=== PATIENT | female | born 1965 | race Two or more races ===

== ENCOUNTER 2020-08-14 09:41 | Outpatient (CLI) | payer BC, OTHER ==
[2020-08-14 11:00] LABS: BASOPHILS # (AUTO) 0.1 K/uL (0.0-8.0); BASOPHILS % (AUTO) 0.9 % (0.0-2.0); EOSINOPHILS # (AUTO) 0.1 K/uL (0.0-0.7); EOSINOPHILS % (AUTO) 1.3 % (0.0-7.0); HEMATOCRIT 42.8 % (31.2-41.9); HEMOGLOBIN 14.6 g/dL (10.9-14.3); LYMPHOCYTES # (AUTO) 3.7 K/uL (20.0-40.0); LYMPHOCYTES % (AUTO) 41.2 % (20.5-51.5); MEAN CORPUSCULAR HEMOGLOBIN 29.3 uug (24.7-32.8); MEAN CORPUSCULAR HGB CONC 34 g/dL (32.3-35.6); MEAN CORPUSCULAR VOLUME 85.7 fL (75.5-95.3); MONOCYTES # (AUTO) 0.4 K/uL (2.0-10.0); MONOCYTES % (AUTO) 4.4 % (0.0-11.0); NEUTROPHILS # (AUTO) 4.7 K/uL (1.8-8.9); NEUTROPHILS % (AUTO) 52.2 % (38.5-71.5); PLATELET COUNT (AUTO) 287 K/uL (179-408); RED BLOOD CELL COUNT(AUTO) 4.99 MIL/uL (3.63-4.92); WHITE BLOOD COUNT (AUTO) 8.9 K/uL (3.8-11.8)
[2020-08-14 11:09] LABS: *BILIRUBIN,URIN NEGATIVE (NEGATIVE); *BLOOD, URINE 2+ (NEGATIVE); *CLARITY,URINE SLIGHTLY CLOUDY (CLEAR); *COLOR,URINE YELLOW (YELLOW); *KETONES,URINE NEGATIVE (NEGATIVE); *UROBILINOGEN,URINE 0.2 E.U./dl (NORMAL); LEUKOCYTE ESTERASE ,URINE NEGATIVE (NEGATIVE); NITRITE, URINE NEGATIVE (NEGATIVE); PH,URINE 5.5 (5.0-8.0); UGLUCOSE NEGATIVE (NEGATIVE)
[2020-08-14 11:21] LABS: THYROID STIMULATING HORMONE 1.996 mIU/mL (0.358-3.740)
[2020-08-14 12:03] LABS: BILIRUBIN,TOTAL 0.8 mg/dL (0.2-1.0); CREATININE 0.8 mg/dL (0.6-1.3); POTASSIUM 3.9 mmol/L (3.5-5.1); TOTAL PROTEIN, SERUM 7.8 g/dL (6.4-8.2); URIC ACID 4.8 mg/dL (2.6-6.0)
[2020-08-14 16:57] LABS: URIC ACID CRYSTALS,URINE MANY /HPF (NONE SEEN)
[2020-08-14 16:58] LABS: BACTERIA,URINE MANY /HPF (NONE SEEN); RBC,URINE 0-3 /HPF (0-3); SQUAMOUS EPITHELIAL CELL,UR FEW /HPF (NONE SEEN); WBC,URINE 0-3 /HPF (0-3)
[2020-08-15 08:06] LABS: HEPATITIS B SURFACE AB Reactive (.)
== END 2020-08-14 23:59 | disposition home or self-care (01) ==
LOC: LAB 09:41
PROVIDERS: ATTEND Internal Medicine
DX: E78.5 Hyperlipidemia, unspecified (principal)
CPT/HCPCS: 70030-TC; 82306; 84443; 84480; 84550; 85025; 86706; 86803; 87086

== ENCOUNTER 2020-08-21 11:44 | Outpatient (CLI) | payer BC, OTHER | END 2020-08-21 23:59 | disposition home or self-care (01) | LOC: RAD 11:44 | PROVIDERS: ATTEND Internal Medicine | DX: S62.654A Nondisplaced fracture of middle phalanx of right ring finger, initial encounter for closed fracture (principal); M19.041 Primary osteoarthritis, right hand; M17.12 Unilateral primary osteoarthritis, left knee; M25.462 Effusion, left knee; X58.XXXA Exposure to other specified factors, initial encounter; Y93.89 Activity, other specified; Y92.89 Other specified places as the place of occurrence of the external cause; Y99.8 Other external cause status | CPT/HCPCS: 73130 ==

== ENCOUNTER 2020-09-04 15:17 | Emergency (ER) | payer BC, OTHER ==
[~2020-09-04] VITALS: Ht 154.9 cm; Wt 77.1 kg
--- NOTE | 2020-09-04 16:00 | NUR ---
pt had to leave before d/c. pt gave the number to be called for result.
--- NOTE | 2020-09-04 16:26 | NUR ---
called pt at [phone], left a message that the covid is positive, that she be following strict social isolation for 2 weeks. aware.
== END 2020-09-04 16:00 | disposition home or self-care (01) ==
LOC: ER 15:17
DX: U07.1 COVID-19 (principal)
CPT/HCPCS: A4663

== ENCOUNTER 2021-11-21 10:53 | Outpatient (CLI) | payer BC, OTHER | END 2021-11-21 23:59 | disposition home or self-care (01) | LOC: RAD 10:53 | PROVIDERS: ATTEND Internal Medicine | DX: M19.012 Primary osteoarthritis, left shoulder (principal); M17.12 Unilateral primary osteoarthritis, left knee | CPT/HCPCS: 73030; 73562 ==

== ENCOUNTER 2021-12-30 10:13 | Outpatient (CLI) | payer BC, OTHER | END 2021-12-30 23:59 | disposition home or self-care (01) | LOC: LAB 10:13 | PROVIDERS: ATTEND Obstetrics & Gynecology | DX: Z80.3 Family history of malignant neoplasm of breast (principal) | CPT/HCPCS: 36415 ==

== ENCOUNTER 2022-03-30 04:50 | Emergency (ER) | payer BC, OTHER ==
[~2022-03-30] VITALS: Ht 154.9 cm; Wt 100.2 kg
[2022-03-30] MEDS ORDERED: HYDROMORPHONE 1 MG/1 ML DISP.SYRIN IV ONE (05:15)
[2022-03-30] MEDS ORDERED: IV NORMAL SALINE 1000 ML BAG IV ONE (05:15)
[2022-03-30] MEDS ORDERED: ONDANSETRON 4 MG/2 ML VIAL IV ONE (05:15)
--- NOTE | 2022-03-30 05:20 | NUR ---
PT IN ED ACCOMPANIED BY SPOUSE FOR REPORT OF ABD PAIN.ONSET X 2 DAYS. DENIES EMESIS. CHANDLER 8/10, [place]ARP IN QUALITY. MAP INSERTED LEFT HAND AND LEFT FA. SEEN BY DR. HARRIS AND NEW ORDERS NOTED.
[2022-03-30] MEDS ORDERED: ONDANSETRON 4 MG/2 ML VIAL ONE (05:31)
[2022-03-30] MEDS ORDERED: HYDROMORPHONE 1 MG/1 ML DISP.SYRIN ONE (05:32)
[2022-03-30 05:42] LABS: HEMATOCRIT 39.5 % (31.2-41.9); MEAN CORPUSCULAR HEMOGLOBIN 28.8 uug (24.7-32.8); MEAN CORPUSCULAR VOLUME 86.8 fL (75.5-95.3); PLATELET COUNT (AUTO) 261 K/uL (179-408)
[2022-03-30 05:45] LABS: CREATININE 0.8 mg/dL (0.6-1.3); POTASSIUM 3.9 mmol/L (3.5-5.1)
[2022-03-30 05:51] LABS: BILIRUBIN,DIRECT 0.1 mg/dL (0.0-0.2); BILIRUBIN,TOTAL 0.9 mg/dL (0.2-1.0); TOTAL PROTEIN, SERUM 7.7 g/dL (6.4-8.2)
[2022-03-30] MEDS ORDERED: METRONIDAZOLE 500 MG/NS 100 ML PIGGYBACK IV ONE (06:00)
[2022-03-30] MEDS ORDERED: levoFLOXacin 500 MG/D5W 100ML PIGGYBACK IV ONE (06:00)
[2022-03-30] MEDS ORDERED: levoFLOXacin 500 MG/D5W 100 ML ONE (06:03)
[2022-03-30] MEDS ORDERED: METRONIDAZOLE 500 MG/NS 100ML 100 ML IV ONE (06:04)
[2022-03-30] MEDS ORDERED: IV NORMAL SALINE 250 ML IV ONE (06:27)
[2022-03-30] MEDS ORDERED: SWABABLE VALVE TRANSFER SET EA MC ONE (06:27)
[2022-03-30] MEDS ORDERED: IOHEXOL 350 100 ML INFUS..BTL ONE (06:27)
--- NOTE | 2022-03-30 06:45 | NUR ---
OFF TO CT FOR ABD CT. US OF ABD COMPLETED AND RESULTS INDICATED GALL STONES.MD JENSEN.
--- NOTE | 2022-03-30 07:00 | NUR ---
Night RN did not fill out reassessment on meds.
--- NOTE | 2022-03-30 07:04 | NUR ---
Pt returned from ct scan @ 07. Gave report to incoming GAY [place].
[2022-03-30 07:08] LABS: *BILIRUBIN,URIN NEGATIVE (NEGATIVE); *BLOOD, URINE 2+ (NEGATIVE); *CLARITY,URINE SLIGHTLY CLOUDY (CLEAR); *COLOR,URINE LIGHT YELLOW (YELLOW); *KETONES,URINE 1+ (NEGATIVE); *UROBILINOGEN,URINE 0.2 E.U./dl (NORMAL); LEUKOCYTE ESTERASE ,URINE NEGATIVE (NEGATIVE); NITRITE, URINE NEGATIVE (NEGATIVE); PH,URINE 5.5 (5.0-8.0); UGLUCOSE NEGATIVE (NEGATIVE)
[2022-03-30 07:20] LABS: WBC,URINE NONE SEEN /HPF (0-3)
[2022-03-30 07:21] LABS: BACTERIA,URINE MANY /HPF (NONE SEEN); SQUAMOUS EPITHELIAL CELL,UR FEW /HPF (NONE SEEN)
[2022-03-30] MEDS ORDERED: AMOX-430 PO (07:41)
[2022-03-30] MEDS ORDERED: TRAM50TA2 PO ×2 (07:41→08:02)
[2022-03-30] MEDS ORDERED: IBUP-1955 PO ×2 (07:41→08:02)
[2022-03-30] MEDS ORDERED: METR500T PO (08:02)
[2022-03-30] MEDS ORDERED: LEVO500T90 PO (08:02)
--- NOTE | 2022-03-30 08:11 | NUR ---
Removed IV intact, site okay, bandaged. Gave pt RX, CD, labs and d/c instructions, pt verbalized understanding.
== END 2022-03-30 08:20 | disposition home or self-care (01) ==
LOC: ER 04:55
DX: K52.9 Noninfective gastroenteritis and colitis, unspecified (principal); K80.20 Calculus of gallbladder without cholecystitis without obstruction; I45.10 Unspecified right bundle-branch block; D72.829 Elevated white blood cell count, unspecified; Z88.0 Allergy status to penicillin; Z20.822 Contact with and (suspected) exposure to COVID-19
CPT/HCPCS: 99285; 74177; 96365; 76705; 96375; 87426; 80076; 80048; 81001; 83690; 85025; 87186; 87086; 87077; 36415; 93005; 96368; 83605; J1956; J3490; J2405; Q9967; J1170; J7040; A4663

== ENCOUNTER 2022-04-10 10:40 | Outpatient (CLI) | payer BC ==
[~2022-04-10 10:40] MED LIST: AMOX-430 PO; IBUP-1955 PO; LEVO500T90 PO; METR500T PO; TRAM50TA2 PO
[2022-04-10 12:08] LABS: HEMATOCRIT 39.7 % (31.2-41.9); MEAN CORPUSCULAR VOLUME 85.9 fL (75.5-95.3); PLATELET COUNT (AUTO) 468 K/uL (179-408)
[2022-04-10 12:22] LABS: *BILIRUBIN,URIN NEGATIVE (NEGATIVE); *BLOOD, URINE 2+ (NEGATIVE); *CLARITY,URINE CLEAR (CLEAR); *COLOR,URINE YELLOW (YELLOW); *KETONES,URINE NEGATIVE (NEGATIVE); *UROBILINOGEN,URINE 0.2 E.U./dl (NORMAL); LEUKOCYTE ESTERASE ,URINE NEGATIVE (NEGATIVE); NITRITE, URINE NEGATIVE (NEGATIVE); PH,URINE 6.5 (5.0-8.0); UGLUCOSE NEGATIVE (NEGATIVE)
[2022-04-10 13:00] LABS: BACTERIA,URINE FEW /HPF (NONE SEEN); SQUAMOUS EPITHELIAL CELL,UR FEW /HPF (NONE SEEN); WBC,URINE 0-3 /HPF (0-3)
[2022-04-10 14:19] LABS: *OCCULT BLOOD STOOL NEGATIVE (NEGATIVE)
[2022-04-10 14:53] LABS: THYROID STIMULATING HORMONE 1.38 mIU/mL (0.358-3.740)
[2022-04-18 14:06] LABS: *VITAMIN D 25-OH, D2 <1.0 ng/mL (.)
== END 2022-04-10 23:59 | disposition home or self-care (01) ==
LOC: LAB 10:40
PROVIDERS: ATTEND Psychiatry & Neurology Psychiatry
DX: Z01.818 Encounter for other preprocedural examination (principal); M25.569 Pain in unspecified knee; R19.5 Other fecal abnormalities
CPT/HCPCS: 36415; 71046; 84443; 85025; 85610; 85730

== ENCOUNTER 2022-04-24 10:57 | Outpatient (CLI) | payer BC ==
[2022-04-24 11:40] LABS: BILIRUBIN,TOTAL 0.7 mg/dL (0.2-1.0); CREATININE 0.8 mg/dL (0.6-1.3); POTASSIUM 4.2 mmol/L (3.5-5.1); TOTAL PROTEIN, SERUM 7.7 g/dL (6.4-8.2)
== END 2022-04-24 23:59 | disposition home or self-care (01) ==
LOC: LAB 10:57
PROVIDERS: ATTEND Legal Medicine
DX: I10 Essential (primary) hypertension (principal)
CPT/HCPCS: 36415

== ENCOUNTER 2022-11-23 11:08 | Outpatient (CLI) | payer BC ==
[2022-11-23 11:47] LABS: HEMATOCRIT 40.5 % (31.2-41.9); MEAN CORPUSCULAR HEMOGLOBIN 28.5 uug (24.7-32.8); MEAN CORPUSCULAR VOLUME 85.9 fL (75.5-95.3); PLATELET COUNT (AUTO) 325 K/uL (179-408)
[2022-11-23 12:06] LABS: THYROID STIMULATING HORMONE 1.635 mIU/mL (0.358-3.740)
[2022-11-23 12:27] LABS: BILIRUBIN,TOTAL 0.7 mg/dL (0.2-1.0); CREATININE 0.8 mg/dL (0.6-1.3); POTASSIUM 4.1 mmol/L (3.5-5.1); TOTAL PROTEIN, SERUM 7.4 g/dL (6.4-8.2)
[2022-11-24 10:17] LABS: *BILIRUBIN,URIN NEGATIVE (NEGATIVE); *BLOOD, URINE 2+ (NEGATIVE); *CLARITY,URINE CLEAR (CLEAR); *COLOR,URINE YELLOW (YELLOW); *KETONES,URINE NEGATIVE (NEGATIVE); *UROBILINOGEN,URINE 0.2 E.U./dl (NORMAL); LEUKOCYTE ESTERASE ,URINE NEGATIVE (NEGATIVE); NITRITE, URINE NEGATIVE (NEGATIVE); PH,URINE 5.5 (5.0-8.0); UGLUCOSE NEGATIVE (NEGATIVE)
[2022-11-24 11:03] LABS: *OCCULT BLOOD STOOL NEGATIVE (NEGATIVE)
[2022-11-24 12:08] LABS: BACTERIA,URINE NONE SEEN /HPF (NONE SEEN); SQUAMOUS EPITHELIAL CELL,UR FEW /HPF (NONE SEEN); WBC,URINE 0-3 /HPF (0-3)
== END 2022-11-23 23:59 | disposition home or self-care (01) ==
LOC: LAB 11:08
PROVIDERS: ATTEND Internal Medicine
DX: I10 Essential (primary) hypertension (principal)
CPT/HCPCS: 83690; 84443; 85025

== ENCOUNTER 2022-11-24 10:00 | Outpatient (CLI) | payer BC, OTHER | END 2022-11-24 23:59 | disposition home or self-care (01) | LOC: LAB 10:00 | PROVIDERS: ATTEND Internal Medicine | DX: I10 Essential (primary) hypertension (principal) ==

== ENCOUNTER 2023-06-16 07:30 | Day surgery (SDC) | payer BC, OTHER ==
[2023-06-16] MEDS ORDERED: PROPOFOL 200 MG/20 ML BOTTLE ONE (08:00)
[2023-06-16 08:28] LABS: BASOPHILS # (AUTO) 0.1 K/UL (0.0-0.2); BASOPHILS % (AUTO) 0.9 % (0.0-2.0); EOSINOPHILS # (AUTO) 0.1 K/uL (0.0-0.7); EOSINOPHILS % (AUTO) 1.1 % (0.0-7.0); HEMATOCRIT 40.8 % (31.2-41.9); HEMOGLOBIN 13.7 g/dL (10.9-14.3); LYMPHOCYTES # (AUTO) 3.6 K/uL (0.8-4.8); MEAN CORPUSCULAR HGB CONC 34 g/dL (32.3-35.6); MEAN CORPUSCULAR VOLUME 86.6 fL (75.5-95.3); MONOCYTES # (AUTO) 0.4 K/uL (0.1-1.30); MONOCYTES % (AUTO) 4.3 % (0.0-11.0); NEUTROPHILS # (AUTO) 4.8 K/uL (1.8-8.9); NEUTROPHILS % (AUTO) 53.7 % (38.5-71.5); PLATELET COUNT (AUTO) 280 K/uL (179-408); RED BLOOD CELL COUNT(AUTO) 4.71 MIL/uL (3.63-4.92); RED CELL DISTRIBUTION WIDTH 14.2 % (12.3-17.7); WHITE BLOOD COUNT (AUTO) 8.9 K/uL (3.8-11.8)
[2023-06-16 08:30] LABS: DIFFERENTIAL COMMENT 1
[2023-06-16 08:39] LABS: CALCIUM 9.2 mg/dL (8.5-10.1); CREATININE 0.9 mg/dL (0.6-1.3); POTASSIUM 4.1 mmol/L (3.5-5.1)
[2023-06-16 08:45] LABS: ALBUMIN 3.6 g/dL (3.4-5.0)
[2023-06-16 10:09] VITALS: TEMP 98.2
== END 2023-06-16 10:30 | disposition home or self-care (01) ==
LOC: DS 07:30
PROVIDERS: ATTEND Internal Medicine Gastroenterology
DX: K52.9 Noninfective gastroenteritis and colitis, unspecified (principal); D64.9 Anemia, unspecified; D12.2 Benign neoplasm of ascending colon; K64.8 Other hemorrhoids; I10 Essential (primary) hypertension; Z88.0 Allergy status to penicillin; Z79.899 Other long term (current) drug therapy; Z79.01 Long term (current) use of anticoagulants; Z98.890 Other specified postprocedural states
CPT/HCPCS: 36415; 71045; 85025; 85730; 93005; A4663; J3490

== ENCOUNTER 2024-12-11 03:30 | Emergency (ER) | payer BC, OTHER ==
[~2024-12-11] VITALS: Ht 154.9 cm; Wt 97.1 kg
[~2024-12-11 03:30] MED LIST changes: +ACET1TAB23 PO; +ONDA4TAB5 PO; +SULF1TAB48 PO
[2024-12-11] MEDS ORDERED: ONDANSETRON 4 MG/2 ML VIAL ONE (04:02)
[2024-12-11] MEDS ORDERED: KETOROLAC TROMETHAMINE 15 MG INJ ONE (04:02)
[2024-12-11] MEDS ORDERED: HYDROMORPHONE 1 MG/1 ML DISP.SYRIN ONE (04:03)
[2024-12-11 04:04] LABS: BASOPHILS # (AUTO) 0.2 K/UL (0.0-0.2); EOSINOPHILS # (AUTO) 0.1 K/uL (0.0-0.7); EOSINOPHILS % (AUTO) 0.5 % (0.0-7.0); HEMATOCRIT 41.4 % (31.2-41.9); HEMOGLOBIN 13.8 g/dL (10.9-14.3); LYMPHOCYTES # (AUTO) 3.4 K/uL (0.8-4.8); LYMPHOCYTES % (AUTO) 21.7 % (20.5-51.5); MEAN CORPUSCULAR HEMOGLOBIN 28.6 uug (24.7-32.8); MEAN CORPUSCULAR HGB CONC 33 g/dL (32.3-35.6); MEAN CORPUSCULAR VOLUME 85.6 fL (75.5-95.3); MONOCYTES # (AUTO) 0.7 K/uL (0.1-1.30); MONOCYTES % (AUTO) 4.3 % (0.0-11.0); NEUTROPHILS # (AUTO) 11.4 K/uL (1.8-8.9); NEUTROPHILS % (AUTO) 72.5 % (38.5-71.5); PLATELET COUNT (AUTO) 287 K/uL (179-408); RED BLOOD CELL COUNT(AUTO) 4.84 MIL/uL (3.63-4.92); RED CELL DISTRIBUTION WIDTH 14.4 % (12.3-17.7); WHITE BLOOD COUNT (AUTO) 15.8 K/uL (3.8-11.8)
[2024-12-11 04:23] LABS: CALCIUM 9.4 mg/dL (8.5-10.1); CREATININE 0.8 mg/dL (0.6-1.3); POTASSIUM 4.2 mmol/L (3.5-5.1)
[2024-12-11] MEDS: HYDROMORPHONE 1 MG/1 ML DISP.SYRIN IV ONE (04:23)
[2024-12-11] MEDS: ONDANSETRON 4 MG/2 ML VIAL IV ONE (04:23)
[2024-12-11] MEDS: KETOROLAC TROMETHAMINE 15 MG INJ IVP ONE (04:23)
[2024-12-11 04:29] LABS: ALBUMIN 3.6 g/dL (3.4-5.0); BILIRUBIN,DIRECT 0.1 mg/dL (0.0-0.2); BILIRUBIN,TOTAL 0.5 mg/dL (0.2-1.0); TOTAL PROTEIN, SERUM 7.7 g/dL (6.4-8.2)
[2024-12-11] MEDS ORDERED: ONDA4TAB11 PO (04:58)
[2024-12-11] MEDS ORDERED: HYDR-3980 PO (04:58)
[2024-12-11 05:12] VITALS: BP 135/69; O2SAT 98
== END 2024-12-11 05:13 | disposition home or self-care (01) ==
LOC: ER 03:30
DX: K80.20 Calculus of gallbladder without cholecystitis without obstruction (principal); Z79.1 Long term (current) use of non-steroidal anti-inflammatories (NSAID); Z88.0 Allergy status to penicillin; Z90.49 Acquired absence of other specified parts of digestive tract; Z87.19 Personal history of other diseases of the digestive system; Z88.8 Allergy status to other drugs, medicaments and biological substances
CPT/HCPCS: 99285; 96374; 76705; 96375; 80076; 80048; 83690; 85025; 36415; J1885; J2405; J1171; A4606; A4663